=== PATIENT | male | born 1980 ===

== ENCOUNTER 2020-03-23 11:44 | Emergency (ER) | payer BC | END 2020-03-23 12:09 | disposition left against medical advice (07) | LOC: ERS 11:44 | DX: Z53.21 Procedure and treatment not carried out due to patient leaving prior to being seen by health care provider (principal) ==

== ENCOUNTER 2020-03-25 11:26 | Inpatient (IN) | payer BC, OTHER ==
[2020-03-25 12:43] LABS: #Basophils 0.1 thou/uL (0.0-0.2); #Lymphocytes 1.3 thou/uL (1.20-3.40); #Monocytes 0.3 thou/uL (0.11-0.59); #Neutrophils 2.9 thou/uL (1.40-6.50); %Basophils 1.8 % (0.0-1.0); %Eosinophils 0.9 % (0.0-10.0); %Lymphocytes 27.3 % (21.0-51.0); %Monocytes 6.1 % (0.0-10.0); %Neutrophils 63.8 % (42.0-75.0); Hemoglobin 7.8 g/dL (14.0-18.0); Mean Corpuscular HGB CONC 35.3 g/dL (32.0-36.0); Mean Corpuscular Hemoglobin 28.8 pg (27.0-31.0); Mean Corpuscular Volume 81.6 fL (78.0-98.0); Mean Platelet Volume 8.2 fL (7.4-10.4); Platelet Count 187 thou/uL (130-400); RBC Distribution Width 10.8 % (11.5-14.5); Red Blood Cell (RBC) Count 2.72 mill/uL (4.70-6.10); White Blood Cell (WBC) Count 4.6 thou/uL (4.8-10.8)
[2020-03-25 13:01] LABS: ALT (SGPT) 7 U/L (8-55); AST (SGOT) 7 U/L (5-34); Albumin 3.8 g/dL (3.5-5.0); Alkaline Phosphatase 53 U/L (40-110); Anion Gap 14 mmol/L (10-20); BUN (Urea Nitrogen) 64 mg/dL (8.9-20.6); Bilirubin, Total 0.5 mg/dL (0.2-1.2); Calc. Creatinine Clearance 0 mL/min (70-130); Calcium 8.4 mg/dL (7.8-10.44); Carbon Dioxide 17 mmol/L (22-29); Chloride 105 mmol/L (98-107); Estimated GFR-MDRD 6; Globulin 2.3 g/dL (2.4-3.5); Glucose 93 mg/dL (70-105); Potassium 4.4 mmol/L (3.5-5.1); Protein, Total 6.1 g/dL (6.0-8.3); Sodium 132 mmol/L (136-145)
[2020-03-25] MEDS ORDERED: CEFAZOLIN 2 GM in Premix Bag 1 BAG IVPB SCH (13:45)
[2020-03-25] MEDS ORDERED: Tuberculin PPD 0.1 ML VIAL I-DERMAL SCH ×2 (15:45→16:00)
[2020-03-25] MEDS ORDERED: Epoetin (ESRD) 20,000 UNITS/ML SC SCH (16:15)
--- NOTE | 2020-03-25 16:35 | ULT ---
ULTRASOUND VENOUS MAPPING UPPER EXTREMITIES BILATERAL: DATE: 03/25/2020 HISTORY: 40-year-old male with End-stage renal disease. Surgical planning study for creation of arteriovenous fistula for hemodialysis. FINDINGS: RIGHT: Brachial artery:3.5 mm Radial artery:2 mm Ulnar artery:1.5 mm Cephalic vein: Proximal arm: 1.5 mm Mid arm: 1 mm Distal arm: 1.5 mm Antecubital: 1.5 mm Proximal forearm: 0.5 mm Mid forearm: 0.5 mm Distal forearm: 0.5 mm Basilic vein: Proximal arm: 1.5 mm Mid arm: 2 mm Distal arm: 2 mm Antecubital: 2 mm Proximal forearm: 1 mm Mid forearm: 0.5 mm Distal forearm: 0.5 mm LEFT: Brachial artery:4 mm Radial artery:2.5 mm Ulnar artery:1.5 mm Cephalic vein: Proximal arm: 0.5 mm Mid arm: 1 mm Distal arm: 1.5 mm Antecubital: 3 mm Proximal forearm: 1 mm Mid forearm: 0.5 mm Distal forearm: 0.5 mm Basilic vein: Proximal arm: 4 mm Mid arm: 4 mm Distal arm: 3.5 mm Antecubital: 2 mm Proximal forearm: 0.5 mm Mid forearm: 0.5 mm Distal forearm: 0.5 mm IMPRESSION: The basilic vein of the left arm is consistently 3 mm or larger in caliber.
--- NOTE | 2020-03-25 16:49 | PDOC.HHP ---
Hospitalist HPI - History of Present Illness Sent from senior qa analyst office for dialysis History of Present Illness: Mr. Mohamud is a 40M with a PMHx of GERD, HTN, and FSGS diagnosed 10 years ago in [place] who was sent in by his senior qa analyst, Dr. Romero for initiation of dialysis. Patient reports that for the past 10 years he has been on cellcept and briefly prednisone for his FSGS. Dr. Romero reportedly stopped cellcept last week. Initially his kidney problems were identified with protein in his urine. He is unsure what caused the FSGS. He reports mild morning nausea, but denies any other symptoms. Reports that he would like to proceed with peritoneal dialysis so that he may still work. 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 He states it is important to him to start peritoneal dialysis so that he may continue to work normal hours. In the ED initial labs show BUN/Cr of 64/9.16. K of 4.4. H/H 7.8/22.2. Hospitalist ROS - Review of Systems Constitutional: reports: malaise. denies: fever, chills, sweats, weakness, other Eyes: denies: pain, vision change, conjunctivae inflammation, eyelid inflammation, redness, other ENT: denies: ear pain, ear discharge, nose pain, nose discharge, nose congestion , mouth pain, mouth swelling, throat pain, throat swelling, other Respiratory: denies: cough, dry, shortness of breath, hemoptysis, SOB with excertion, pleuritic pain, sputum, wheezing, other Cardiovascular: denies: chest pain, palpitations, orthopnea, paroxysmal noc. dyspnea, edema, light headedness, other Gastrointestinal: reports: nausea. denies: vomiting, abdominal pain, diarrhea, constipation, melena, hematochezia, other Genitourinary: denies: dysuria, frequency, incontinence, hematuria, retention, other Musculoskeletal: denies: neck pain, shoulder pain, arm pain, back pain, hand pain, leg pain, foot pain, other Skin: denies: rash, lesions, farhad, bruising, other Neurological: denies: weakness, numbness, incoordination, change in speech, confusion, seizures, other Hospitalist History - Past Medical History Cardiac: reports: HTN Pulmonary: reports: no pertinent history [employer]: reports: no pertinent history Gastrointestinal: reports: GERD Heme/Onc: reports: Anemia NOS Hepatobiliary: reports: no pertinent history Psych: reports: no pertinent history Musculoskeletal: reports: no pertinent history Rheumatologic: reports: no pertinent history Infectious Disease: reports: no pertinent history ENT: reports: no pertinent history Renal/: reports: Acute renal failure, Chronic renal failure Endocrine: reports: no pertinent history Dermatology: reports: no pertinent history - Past Surgical History Past Surgical History: reports: no pertinent history - Family History Family History: reports: no pertinent history - Social History Smoking Status: Never smoker Alcohol: reports: None Drugs: reports: none Living Situation: With Family Occupation: Gaming Dealer Activity level: independent ambulation - Exam General Appearance: NAD, awake alert General - other findings: No asterxis Eye: PERRL, anicteric sclera ENT: normocephalic atraumatic, no oropharyngeal lesions, moist mucosa Neck: supple, symmetric, no JVD, no thyromegaly, no lymphadenopathy, no carotid bruit Heart: RRR, no murmur, no gallops, no rubs, normal peripheral pulses Respiratory: CTAB, no wheezes, no rales, no ronchi, normal chest expansion, no tachypnea, normal percussion Gastrointestinal: soft, non-tender, non-distended, normal bowel sounds, no palpable masses, no hepatomegaly, no splenomegaly, no bruit Extremities: no cyanosis, no clubbing, no edema Skin: normal turgor, no lesions, no rashes Neurological: cranial nerve grossly intact, normal sensation to touch, no weakness, no focal deficits, no new deficit Musculoskeletal: normal tone, normal strength, no muscle wasting Psychiatric: normal affect, normal behavior, A&O x 3 Hospitalist Results - Labs Result Diagrams: 03/25/20 12:18 03/25/20 12:18 Lab results: WBC 4.6 thou/uL (4.8-10.8) L 03/25/20 12:18 Hgb 7.8 g/dL (14.0-18.0) L 03/25/20 12:18 Hct 22.2 % (42.0-52.0) L 03/25/20 12:18 MCV 81.6 fL (78.0-98.0) 03/25/20 12:18 Plt Count 187 thou/uL (130-400) 03/25/20 12:18 Neutrophils % 63.8 % (42.0-75.0) 03/25/20 12:18 Sodium 132 mmol/L (136-145) L 03/25/20 12:18 Potassium 4.4 mmol/L (3.5-5.1) 03/25/20 12:18 Chloride 105 mmol/L (98-107) 03/25/20 12:18 Carbon Dioxide 17 mmol/L (22-29) L 03/25/20 12:18 BUN 64 mg/dL (8.9-20.6) H 03/25/20 12:18 Creatinine 9.16 mg/dL (0.7-1.3) H 03/25/20 12:18 Glucose 93 mg/dL (70-105) 03/25/20 12:18 Calcium 8.4 mg/dL (7.8-10.44) 03/25/20 12:18 Total Bilirubin 0.5 mg/dL (0.2-1.2) 03/25/20 12:18 AST 7 U/L (5-34) 03/25/20 12:18 ALT 7 U/L (8-55) L 03/25/20 12:18 Alkaline Phosphatase 53 U/L (40-110) 03/25/20 12:18 Serum Total Protein 6.1 g/dL (6.0-8.3) 03/25/20 12:18 Albumin 3.8 g/dL (3.5-5.0) 03/25/20 12:18 Hospitalist H&P A/P - Problem (1) Acute on chronic renal failure Code(s): N17.9 - ACUTE KIDNEY FAILURE, UNSPECIFIED; N18.9 - CHRONIC KIDNEY DISEASE, UNSPECIFIED Status: Acute (2) Anemia in chronic kidney disease Code(s): N18.9 - CHRONIC KIDNEY DISEASE, UNSPECIFIED; D63.1 - ANEMIA IN CHRONIC KIDNEY DISEASE Status: Acute (3) Hypertension Code(s): I10 - ESSENTIAL (PRIMARY) HYPERTENSION Status: Acute (4) GERD (gastroesophageal reflux disease) Code(s): K21.9 - GASTRO-ESOPHAGEAL REFLUX DISEASE WITHOUT ESOPHAGITIS Status: Acute - Plan Plan: Acute on Chronic Renal Failure: Hx of FSGS followed by Dr. Romero. Pt presented from office for initiation of dialysis. 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 On admission BUN/Cr 64/ 9.16. K 4.4. Dr. Topete of general surgery consulted for PD catheter placement. PLAN: -PD catheter placement -Nephrology following -BNP, Mg, Ca, PO4 Anemia of Chronic Disease: Anemia of chronic disease 2/2 CKD. H/H on presentation 7.8/22.2. Nephrology has imitated EPO. PLAN: -EPO per nephrology -Monitor CBC HTN: Hx of HTN. Continue home metoprolol and nifedipine. GERD: Continue home omeprazole. Zofran prn nausea. DVT prophylaxis: SC heparin FULL CODE Case discussed with attending physician, Dr. Araiza. Addendum - Physician - Physician Attestation Date/Time: 03/25/20 1833 Patient was seen and evaluated. I have verified all PA documentation or findings , including history, physical exam and/or medical decision making. 40-year-old male with FSGS followed by Dr. Romero presents with worsening Acute kidney injury on CKD stage V. Plan is for peritoneal dialysis catheter along with AV fistula. Vital signs stable. Procardia XL resumed. Monitor renal function closely. Recheck labs in a.m. All questions were answered. Patient understands the above plan of care.
[2020-03-25 16:56] LABS: Calcium 8.4 mg/dL (7.8-10.44); Magnesium 1.5 mg/dL (1.6-2.6); Phosphorus 3.8 mg/dL (2.3-4.7)
[2020-03-25 17:18] LABS: HBSAg Index 0.34 S/CO (0-0.99); Hep B Core Total Ab Non-Reactive (NonReactive); Hep B Core Total Index 0.04 S/CO (0-0.79); Hep B Surf Ag Non-Reactive S/CO (NonReactive); Hep C IgG Ab Non-Reactive (NonReactive)
[2020-03-25 17:19] LABS: HBSAB Concentration 585.84 mIU/mL; Hep B Surf AB Reactive (NonReactive)
[2020-03-25 17:36] VITALS: BMI 16.0
--- NOTE | 2020-03-25 19:24 | CON ---
DATE OF CONSULTATION: HISTORY OF PRESENT ILLNESS: Mr. Oneida Andino is a 40-year-old Greek male who has been having progressive azotemia. His creatinine was noted about 9 mg percent at the clinic 2 days ago. He has underlying biopsy-proven FSGS. REVIEW OF SYSTEMS: Positive for nausea. Positive for decreased energy level. Decreased appetite. No chest pain or shortness of breath. No leg edema. No abdominal pain. No syncopal episode. No sore throat. No productive cough. No fever or chills. No abdominal pain. No diarrhea. No dysuria. No urinary frequency. No hematochezia. No melena. No joint pains. HOME MEDICATIONS: Includes 1. Nifedipine 30 mg XL tablet once a day. 2. Calcitriol 0.25 mcg tablet daily. 3. Coenzyme Q once a day. 4. Vitamin D3 2000 international unit once a day. 5. Zinc 1 mg tablet once a day. 6. B12 1000 mcg tablet daily. PAST MEDICAL HISTORY: 1. Chronic renal failure. 2. Chronic renal failure from presumed FSGS/nephrotic syndrome. PAST SURGICAL HISTORY: Status post renal biopsy. SOCIAL HISTORY: The patient is . No children. Currently a student at [employer]. He is originally from [place]. No smoking. No IV drug abuse. No alcohol intake. No blood transfusion. Active lifestyle. ALLERGIES: NONE. TRAUMA: None. IMMUNIZATIONS: Up to date. HOSPITALIZATIONS: Please see past medical history. FAMILY HISTORY: No family history of ESRD. PHYSICAL EXAMINATION: VITAL SIGNS: Blood pressure is 146/96, heart rate 56, respiratory rate 16, O2 saturation 100% on room air. GENERAL: The patient is awake, alert, comfortable, not in distress. SKIN: Adequate turgor. HEENT: He has pinkish conjunctivae, anicteric sclerae. NECK: No neck mass. No carotid bruits. No JVD. CHEST: No deformities. LUNGS: Clear breath sounds. HEART: Normal sinus rhythm. No murmurs, gallops, or rubs. ABDOMEN: Globular, soft, nontender. No masses. EXTREMITIES: No edema, no deformities. NEUROLOGIC: Patient is awake, oriented to 3 spheres. Moving all extremities. No tremors. No asterixis. No ataxia. LABORATORY DATA: March 25, 2020, white count 4.6, hemoglobin 7.8. Sodium 132, potassium 4.4, chloride 105, carbon dioxide 17, BUN 64, creatinine 9.16, GFR 16 mL/minute, calcium 8.4. AST 7, ALT 7. Albumin 3.8. ASSESSMENT AND PLAN: 1. Chronic renal failure secondary to biopsy-proven FSGS progressive azotemia. Renal function has worsened since he was first seen in the Renal clinic back on September 30, 2018. He is aware about the need for dialytic intervention. Initially, he thought of going back to [place] to get the renal transplant. The plan is to initiate dialysis with him. He is requesting to undergo peritoneal dialysis. He will have a PD catheter placed by Dr. Topete. He may eventually need also an AV fistula for backup. I did tell him he could have both. Dr. Topete has been consulted. Once we have the PD catheter placed, we will initiate an acute peritoneal dialysis using low volume initially, so he will tolerate the said procedure. We will continue this consecutively every day and subsequently transfer him to the outpatient dialysis clinic. 2. Anemia. We will initiate Epogen with this patient, 7500 units subcu q.week. At the same time, we will start ferrous sulfate. Job ID: [id number]
[2020-03-25] MEDS: Metoprolol Tartrate 25 MG TAB PO SCH (20:42)
--- NOTE | 2020-03-26 00:20 | CON ---
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 The patient is from [place]. He is . His lives here in town with him. The patient is schedule to finish his PhD in this semester. He has job opportunities in [place], [place] to [place]. He has been followed in both [place] and here during his education by different smog technician. Dr. Romero has been following him and admitted him to initiate dialysis. He hopes to do peritoneal dialysis to enable him to continue his work and studies. He is right-handed. He did have ultrasound vein mapping today demonstrating cephalic veins both arms to be of poor quality. He is not interested in hemodialysis at this time and wants hemodialysis access at this time and we are planning laparoscopic peritoneal dialysis catheter placement tomorrow. He understands risks and benefits, consents. ALLERGIES: NONE. SOCIAL HISTORY: Tobacco, none. Alcohol, none. MEDICATIONS: 1. Procardia XL 30 mg a day. 2. daily. PAST SURGICAL HISTORY: Kidney biopsy. PAST MEDICAL HISTORY: Focal glomerulosclerosis followed by Dr. Romero and other smog technician over the past years. REVIEW OF SYSTEMS: Ten-point noncontributory. PHYSICAL EXAMINATION: VITAL SIGNS: 6 feet 2 inches, 124 pounds, and 16 BMI. 97.6, 66, and 142/96. Bandage in left antecubital area IV, right distal forearm. HEAD, EARS, EYES, NOSE, AND THROAT: Unremarkable. LUNGS: Clear to auscultation. CARDIAC: Regular rate and rhythm without murmur or gallop. ABDOMEN: Soft and nontender. No hernia is evident. EXTREMITIES: Unremarkable. ASSESSMENT AND PLAN: Progressive chronic kidney disease in need to initiate dialysis. We will plan placement laparoscopic peritoneal dialysis catheter tomorrow. He understands risks and benefits, consents. He has poor veins for hemodialysis access and is not interested in having at this time and we will not perform this at this time. Job ID: [id number]
[2020-03-26 06:22] LABS: #Basophils 0.1 thou/uL (0.0-0.2); #Eosinphils 0.1 thou/uL (0.0-0.7); #Lymphocytes 1.7 thou/uL (1.20-3.40); #Monocytes 0.4 thou/uL (0.11-0.59); %Basophils 1.6 % (0.0-1.0); %Eosinophils 3.2 % (0.0-10.0); %Lymphocytes 39.2 % (21.0-51.0); %Monocytes 8.1 % (0.0-10.0); %Neutrophils 47.8 % (42.0-75.0); Hemoglobin 6.5 g/dL (14.0-18.0); Mean Corpuscular HGB CONC 35.4 g/dL (32.0-36.0); Mean Corpuscular Hemoglobin 28.8 pg (27.0-31.0); Mean Corpuscular Volume 81.3 fL (78.0-98.0); Mean Platelet Volume 8.2 fL (7.4-10.4); Platelet Count 152 thou/uL (130-400); RBC Distribution Width 10.9 % (11.5-14.5); Red Blood Cell (RBC) Count 2.24 mill/uL (4.70-6.10); White Blood Cell (WBC) Count 4.3 thou/uL (4.8-10.8)
[2020-03-26 06:40] LABS: Anion Gap 11 mmol/L (10-20); BUN (Urea Nitrogen) 67 mg/dL (8.9-20.6); Calc. Creatinine Clearance 9 mL/min (70-130); Calcium 7.7 mg/dL (7.8-10.44); Carbon Dioxide 19 mmol/L (22-29); Chloride 103 mmol/L (98-107); Estimated GFR-MDRD 7; Glucose 93 mg/dL (70-105); Potassium 4.4 mmol/L (3.5-5.1); Sodium 129 mmol/L (136-145)
[2020-03-26 08:14] LABS: SARS-CoV-2 NAA Rapid Test Not Detected (NotDetected)
[2020-03-26] MEDS ORDERED: hydrALAZINE 20 MG/ML VIAL SLOW IVP PRN (08:14)
[2020-03-26] MEDS: NIFEdipine XL 30 MG TAB PO SCH (08:49)
[2020-03-26] MEDS: Metoprolol Tartrate 25 MG TAB PO SCH ×2 (08:49→20:42)
[2020-03-26] MEDS: Calcitriol 0.25 MCG CAP PO SCH (08:50)
[2020-03-26] MEDS ORDERED: EPOETIN ALFA-EPBX (ESRD) 4,000 UNIT/ML VIAL SC SCH (09:00)
[2020-03-26] MEDS ORDERED: Ondansetron PF 4 MG/2 ML Vial ONE (09:02)
[2020-03-26] MEDS ORDERED: Lidocaine 1% PF 5 ML VIAL ONE (09:02)
[2020-03-26] MEDS ORDERED: Rocuronium Bromide 10 MG/ML (10ML VIAL) ONE (09:02)
[2020-03-26] MEDS ORDERED: PROPOFOL 200 MG/20 ML VIAL ONE (09:02)
--- NOTE | 2020-03-26 09:26 | PRG ---
DATE OF SERVICE: 03/26/2020 SUBJECTIVE: Mr. Oneida Andino is a 40-year-old Martiniquais male, admitted for initiation of dialysis. He had a biopsy-proven FSGS. He is complaining of some nausea today, but no chest pain or shortness of breath. OBJECTIVE: VITAL SIGNS: Blood pressure 146/82, heart rate 68, respiratory rate 18, temperature 98.1, O2 saturation 100%. GENERAL: Awake, alert, comfortable, not in distress. SKIN: Adequate turgor. HEENT: Pale conjunctivae. Anicteric sclerae. NECK: No neck mass. No carotid bruits. No JVD. CHEST: No deformities. LUNGS: Clear breath sounds. HEART: Normal sinus rhythm. No murmur. No gallops. No rubs. ABDOMEN: Globular, soft, nontender. No masses. EXTREMITIES: No edema. No deformities. MEDICATIONS: On March 26, 2020, were reviewed. LABORATORY DATA: On March 26, 2020; white count 4.3, hemoglobin 6.5. Sodium 129, potassium 4.4, chloride 103, carbon dioxide 19, BUN 67, creatinine 8.59, calcium 7.7. Phosphorus 2.8. ASSESSMENT AND PLAN: 1. Chronic renal failure secondary to biopsy-proven focal segmental glomerulosclerosis, progressive azotemia. The patient for peritoneal dialysis catheter placement and will initiate peritoneal dialysis acutely. 2. Anemia. Currently, on Epogen regimen. Hemoglobin noted at 6.5. He will need p.r.n. blood transfusion. 3. Hypertension, stable. Continue current blood pressure medications. 4. Surgery to place a peritoneal dialysis catheter today. Job ID: [id number]
[2020-03-26] MEDS ORDERED: Bupivacaine PF 0.5% 30 ML VIAL ONE (10:57)
[2020-03-26] MEDS ORDERED: Lidocaine 1% w/Epinephrine 1:100K 20 ML VIAL ONE (10:57)
[2020-03-26] MEDS ORDERED: Heparin 10,000 UNITS/ 10 ML VIAL ONE (10:57)
[2020-03-26] MEDS ORDERED: Acetaminophen 500 MG TAB PO PRN (11:00)
[2020-03-26] MEDS ORDERED: Fentanyl 100 MCG/2 ML VIAL ONE ×3 (11:07→12:29)
[2020-03-26] MEDS ORDERED: SUGAMMADEX SODIUM 200 MG/2 ML VIAL ONE (11:07)
[2020-03-26] MEDS ORDERED: Ondansetron HCl/PF 4 MG/2 ML Vial IVP PRN (12:53)
[2020-03-26] MEDS ORDERED: Promethazine HCl 25 MG/ML VIAL IM/IV PRN (12:53)
[2020-03-26] MEDS ORDERED: Non-Formulary Medication 1 EACH PO PRN (12:53)
[2020-03-26] MEDS ORDERED: Promethazine HCl 25 MG/ML VIAL ONE (12:56)
[2020-03-26] MEDS: Tuberculin PPD 0.1 ML VIAL I-DERMAL SCH ×4 (13:15→13:23)
[2020-03-26] MEDS: traMADol HCl 50 MG TAB PO PRN (15:13)
--- NOTE | 2020-03-26 16:29 | OP ---
DATE OF PROCEDURE: 03/26/2020 PREOPERATIVE DIAGNOSES: End-stage renal disease, desires peritoneal dialysis, poor veins by ultrasound vein mapping for fistula, and the patient does not want that at this time. PROCEDURE PERFORMED: Laparoscopic peritoneal dialysis catheter, double-cuffed pigtail. ANESTHESIA: General, local 0.5% Marcaine 30 mL mixed with 1% Xylocaine with epinephrine 20 mL. DESCRIPTION OF PROCEDURE: The patient was taken to the operating room, where in supine position, abdomen was prepared with ChloraPrep and draped in routine fashion under general anesthesia. Local anesthetic mixture was infiltrated into the skin and subcutaneous tissue about the operative sites. Bilateral far lateral incision was made. Pneumoperitoneum to 15 mmHg was obtained with a Veress needle, replaced with a 5 port, and video laparoscope inserted. Contralateral 5 port was placed. Stab incision made in the left lower quadrant planned exit site of the double cuffed pigtail peritoneal dialysis catheter and a counter incision made left paraumbilical and carried down through skin and subcutaneous tissue, and subcutaneous tissue was dissected free. An 8-mm port placed through this counter incision, directed caudally toward the pelvis to the subcutaneous tissue into the rectus sheath, visualized laparoscopically, penetrating the abdominal wall dependently. Catheter, double cuffed pigtail placed through this port with the internal cuff in the rectus sheath and port removed. A [place] dissector placed through the planned exit site into the counter incision, grasping the catheter and pulling out at the planned exit site, placing the external cuff beneath the skin exit site. Subcutaneous tissue was approximated with 3-0 Monocryl, skin with subdermal 4-0 Monocryl, and [place] glue applied. The catheter flushed with heparinized saline solution, 1000 units of heparin per mL, 10 mL, and cap placed, and sterile dressings applied. Pneumoperitoneum reduced after appreciating the omentum would not reach into the pelvis and omentopexy was not necessary. Remainder of abdominal cavity was unremarkable grossly. Pneumoperitoneum evacuated. All skin incisions approximated with interrupted subdermal 4-0 Monocryl and [place] glue applied. Job ID: [id number]
--- NOTE | 2020-03-26 18:55 | PDOC.HOSPP ---
- Subjective Encounter Date: 03/26/20 Encounter Time: 12:00 Subjective: Patient seen and examined in PACU for worsening CKD. Underwent peritoneal dialysis catheter placement. - Objective Vital Signs & Weight: Vital Signs (12 hours) Temp Pulse Resp BP Pulse Ox 03/26/20 16:33 98.4 F 65 18 141/76 H 99 03/26/20 14:45 69 152/91 H 03/26/20 14:15 64 147/77 H 03/26/20 13:45 61 135/71 03/26/20 13:15 97.5 F L 74 18 157/79 H 100 03/26/20 08:49 68 03/26/20 07:00 98.1 F 68 18 146/82 H 100 Weight Admit Weight 124 lb 9.6 oz Weight 124 lb 9.6 oz I&O: 03/25/20 03/26/20 03/27/20 06:59 06:59 06:59 Intake Total 240 800 Output Total 1100 Balance -860 800 Result Diagrams: 03/26/20 05:57 03/26/20 05:57 Hospitalist ROS - Review of Systems Respiratory: denies: cough, dry, shortness of breath, hemoptysis, SOB with excertion, pleuritic pain, sputum, wheezing, other Cardiovascular: denies: chest pain, palpitations, orthopnea, paroxysmal noc. dyspnea, edema, light headedness, other - Medication Medications: Active Medications Generic Name Dose Route Start Last Admin Trade Name Freq PRN Reason Stop Dose Admin Calcitriol 0.25 mcg 03/26/20 09:00 03/26/20 08:50 Rocaltrol PO 0.25 mcg DAILY YARI Administration Epoetin Robert-epbx 7,500 unit 03/26/20 09:00 03/26/20 08:50 Retacrit SC 7,500 unit [id number] YARI Administration Metoprolol Tartrate 25 mg 03/25/20 21:00 03/26/20 08:49 Lopressor PO 25 mg BID YARI Administration Nifedipine 30 mg 03/26/20 09:00 03/26/20 08:49 Procardia Xl PO 30 mg DAILY YARI Administration Tramadol HCl 50 mg 03/26/20 11:00 03/26/20 15:13 Ultram PO 50 mg Q4H PRN Administration Mild-Moderate Pain (1-5) Tuberculin PPD 0.1 ml 03/26/20 13:30 03/26/20 13:23 Tuberculin Ppd I-DERMAL 03/29/20 13:31 0.1 ml 1330 YARI Administration - Exam General Appearance: NAD Neck: supple, no JVD Heart: RRR, no gallops Respiratory: no wheezes, no ronchi Gastrointestinal: soft, non-distended Extremities: no cyanosis Hosp A/P (1) Acute on chronic renal failure Code(s): N17.9 - ACUTE KIDNEY FAILURE, UNSPECIFIED; N18.9 - CHRONIC KIDNEY DISEASE, UNSPECIFIED Status: Acute Qualifiers: Chronic kidney disease stage: stage 5, not on chronic dialysis (2) Anemia in chronic kidney disease Code(s): N18.9 - CHRONIC KIDNEY DISEASE, UNSPECIFIED; D63.1 - ANEMIA IN CHRONIC KIDNEY DISEASE Status: Acute (3) Hypertension Code(s): I10 - ESSENTIAL (PRIMARY) HYPERTENSION Status: Chronic (4) GERD (gastroesophageal reflux disease) Code(s): K21.9 - GASTRO-ESOPHAGEAL REFLUX DISEASE WITHOUT ESOPHAGITIS Status: Chronic (5) FSGS (focal segmental glomerulosclerosis) Code(s): N05.1 - UNSP NEPH SYNDROME W FOCAL AND SEGMENTAL GLOMERULAR LESIONS Status: Chronic - Plan 03/26 Patient underwent peritoneal dialysis catheter placement. Dialysis will be initiated. He declined AV fistula at this time. Continue Procardia XL with metoprolol. Outpatient dialysis set up. Continue renal diet. Ambulate. DVT prophylaxis with heparin.
[2020-03-26] MEDS: Heparin 5,000 UNITS/ML VIAL SC SCH (20:42)
[2020-03-27] MEDS: Heparin 5,000 UNITS/ML VIAL SC SCH ×2 (08:05→20:10)
[2020-03-27] MEDS: NIFEdipine XL 30 MG TAB PO SCH (08:06)
[2020-03-27] MEDS: Calcitriol 0.25 MCG CAP PO SCH (08:06)
[2020-03-27] MEDS: Metoprolol Tartrate 25 MG TAB PO SCH ×2 (08:06→20:12)
[2020-03-27] MEDS: Tuberculin PPD 0.1 ML VIAL I-DERMAL SCH (08:12)
--- NOTE | 2020-03-27 10:58 | PRG ---
DATE OF SERVICE: 03/27/2020 SUBJECTIVE: Mr. Oneida Andino is a 40-year-old Panamanian male, who was admitted for initiation of dialysis. A peritoneal dialysis catheter was placed yesterday. He is undergoing CAPD at the present time. We are doing an acute peritoneal dialysis. He seems to be tolerating the said treatment. We initiated only a 500 mL exchange for the patient. Some bloody effluent was noted, which is a reflection of the recent surgery. No complaints of chest pain or shortness of breath. OBJECTIVE: VITAL SIGNS: Blood pressure 150/78, heart rate 69, respiratory rate 16, temperature 97.2, O2 saturation 99%. GENERAL: The patient is awake, alert, comfortable, supine, not in distress. SKIN: Adequate turgor. HEENT: Pale conjunctivae. Anicteric sclerae. NECK: No neck mass. No carotid bruits. No JVD. CHEST: No deformities. LUNGS: Clear breath sounds. HEART: Normal sinus rhythm. No murmur. No gallops. No rubs. ABDOMEN: Globular, soft, nontender. No masses. EXTREMITIES: No edema. No deformities. PD catheter noted. MEDICATIONS: Medications of March 27, 2020, reviewed. LABORATORY DATA: Laboratories of March 26, 2020; white count 4.2, hemoglobin 6.5. Sodium 129, potassium 4.4, chloride 103, carbon dioxide 19, BUN 67, creatinine 8.59, calcium 7.7. ASSESSMENT AND PLAN: 1. End-stage renal disease/chronic renal failure. Initiated CCPD. Currently, undergoing a 6-hour treatment using 500 mL of PD fluid. He is tolerating the current acute peritoneal dialysis. 2. Anemia. The patient is currently on Epogen. We will give 1 unit of packed RBC today. Recheck CBC in a.m. 3. Hypertension, stable. Continue current BP medications. 4. Recheck CBC, basic metabolic profile. Job ID: [id number]
[2020-03-27 11:12] LABS: #Basophils 0.1 thou/uL (0.0-0.2); #Lymphocytes 0.7 thou/uL (1.20-3.40); #Monocytes 0.2 thou/uL (0.11-0.59); #Neutrophils 3.5 thou/uL (1.40-6.50); %Basophils 1.5 % (0.0-1.0); %Eosinophils 0.7 % (0.0-10.0); %Lymphocytes 15.6 % (21.0-51.0); %Monocytes 5.4 % (0.0-10.0); %Neutrophils 76.8 % (42.0-75.0); Hemoglobin 7.3 g/dL (14.0-18.0); Mean Corpuscular HGB CONC 35.5 g/dL (32.0-36.0); Mean Corpuscular Hemoglobin 29.1 pg (27.0-31.0); Mean Corpuscular Volume 81.9 fL (78.0-98.0); Mean Platelet Volume 8.5 fL (7.4-10.4); Platelet Count 168 thou/uL (130-400); RBC Distribution Width 11.1 % (11.5-14.5); Red Blood Cell (RBC) Count 2.52 mill/uL (4.70-6.10); White Blood Cell (WBC) Count 4.5 thou/uL (4.8-10.8)
[2020-03-27 11:29] LABS: Anion Gap 12 mmol/L (10-20); BUN (Urea Nitrogen) 64 mg/dL (8.9-20.6); Calc. Creatinine Clearance 9 mL/min (70-130); Calcium 7.9 mg/dL (7.8-10.44); Carbon Dioxide 20 mmol/L (22-29); Chloride 102 mmol/L (98-107); Estimated GFR-MDRD 7; Glucose 112 mg/dL (70-105); Potassium 4.3 mmol/L (3.5-5.1); Sodium 130 mmol/L (136-145)
--- NOTE | 2020-03-27 16:34 | PDOC.HOSPP ---
- Subjective Encounter Date: 03/27/20 Encounter Time: 10:30 Subjective: Patient seen and examined for acute kidney injury. Undergoing peritoneal dialysis. Some nausea earlier. Denies any fever, chills or abdominal pain. Dialysis nurse at the bedside educating him on peritoneal dialysis. - Objective Vital Signs & Weight: Vital Signs (12 hours) Temp Pulse Pulse Resp BP BP BP 03/27/20 15:11 98.2 F 62 18 153/84 H 03/27/20 08:06 69 150/78 H 03/27/20 08:03 97.2 F L 69 16 150/78 H Pulse Ox 03/27/20 15:11 100 03/27/20 08:06 03/27/20 08:03 99 Weight Admit Weight 124 lb 9.6 oz Weight 125 lb I&O: 03/26/20 03/27/20 03/28/20 06:59 06:59 06:59 Intake Total 240 800 360 Output Total 1100 1200 Balance -860 800 -840 Result Diagrams: 03/27/20 10:33 03/27/20 10:33 Hospitalist ROS - Review of Systems Respiratory: denies: cough, dry, shortness of breath, hemoptysis, SOB with excertion, pleuritic pain, sputum, wheezing, other Cardiovascular: denies: chest pain, palpitations, orthopnea, paroxysmal noc. dyspnea, edema, light headedness, other - Medication Medications: Active Medications Generic Name Dose Route Start Last Admin Trade Name Freq PRN Reason Stop Dose Admin Calcitriol 0.25 mcg 03/26/20 09:00 03/27/20 08:06 Rocaltrol PO 0.25 mcg DAILY YARI Administration Epoetin Robert-epbx 7,500 unit 03/26/20 09:00 03/26/20 08:50 Retacrit SC 7,500 unit [id number] YARI Administration Heparin Sodium (Porcine) 5,000 units 03/26/20 21:00 03/27/20 08:05 Heparin SC 5,000 units BID YARI Administration Metoprolol Tartrate 25 mg 03/25/20 21:00 03/27/20 08:06 Lopressor PO 25 mg BID YARI Administration Nifedipine 30 mg 03/26/20 09:00 03/27/20 08:06 Procardia Xl PO 30 mg DAILY YARI Administration Tramadol HCl 50 mg 03/26/20 11:00 03/26/20 15:13 Ultram PO 50 mg Q4H PRN Administration Mild-Moderate Pain (1-5) Tuberculin PPD 0.1 ml 03/26/20 13:30 03/27/20 08:12 Tuberculin Ppd I-DERMAL 03/29/20 13:31 Not Given 1330 YARI - Exam General Appearance: NAD Neck: supple, no JVD Respiratory: normal chest expansion Extremities: no cyanosis, no clubbing Neurological: no new deficit Psychiatric: normal affect, A&O x 3 Hosp A/P (1) Acute on chronic renal failure Code(s): N17.9 - ACUTE KIDNEY FAILURE, UNSPECIFIED; N18.9 - CHRONIC KIDNEY DISEASE, UNSPECIFIED Status: Acute Qualifiers: Chronic kidney disease stage: stage 5, not on chronic dialysis (2) Anemia in chronic kidney disease Code(s): N18.9 - CHRONIC KIDNEY DISEASE, UNSPECIFIED; D63.1 - ANEMIA IN CHRONIC KIDNEY DISEASE Status: Chronic Qualifiers: Chronic kidney disease stage: stage 5, not on chronic dialysis Qualified Code(s): N18.5 - Chronic kidney disease, stage 5; D63.1 - Anemia in chronic kidney disease (3) Hypertension Code(s): I10 - ESSENTIAL (PRIMARY) HYPERTENSION Status: Chronic (4) GERD (gastroesophageal reflux disease) Code(s): K21.9 - GASTRO-ESOPHAGEAL REFLUX DISEASE WITHOUT ESOPHAGITIS Status: Chronic (5) FSGS (focal segmental glomerulosclerosis) Code(s): N05.1 - UNSP NEPH SYNDROME W FOCAL AND SEGMENTAL GLOMERULAR LESIONS Status: Chronic - Plan DVT proph w/SCDs 03/27 Continue peritoneal dialysis. Receiving 1 unit of PRBC. Continue metoprolol with Procardia XL. Await outpatient dialysis set up. DVT prophylaxis. Continue other medications as above. 03/26 Patient underwent peritoneal dialysis catheter placement. Dialysis will be initiated. He declined AV fistula at this time. Continue Procardia XL with metoprolol. Outpatient dialysis set up. Continue renal diet. Ambulate. DVT prophylaxis with heparin.
[2020-03-27] MEDS ORDERED: Labetalol HCl 100 MG/20 ML VIAL SLOW IVP PRN (16:38)
[2020-03-27] MEDS: traMADol HCl 50 MG TAB PO PRN (22:05)
[2020-03-28 05:41] LABS: #Basophils 0.1 thou/uL (0.0-0.2); #Eosinphils 0.1 thou/uL (0.0-0.7); #Lymphocytes 1.8 thou/uL (1.20-3.40); #Monocytes 0.4 thou/uL (0.11-0.59); #Neutrophils 2.5 thou/uL (1.40-6.50); %Basophils 1.5 % (0.0-1.0); %Eosinophils 2.3 % (0.0-10.0); %Monocytes 8.5 % (0.0-10.0); %Neutrophils 50.7 % (42.0-75.0); Hemoglobin 8.5 g/dL (14.0-18.0); Mean Corpuscular HGB CONC 34.9 g/dL (32.0-36.0); Mean Corpuscular Hemoglobin 29.3 pg (27.0-31.0); Mean Corpuscular Volume 84.1 fL (78.0-98.0); Mean Platelet Volume 8.6 fL (7.4-10.4); Platelet Count 178 thou/uL (130-400); RBC Distribution Width 12.5 % (11.5-14.5); Red Blood Cell (RBC) Count 2.91 mill/uL (4.70-6.10); White Blood Cell (WBC) Count 4.8 thou/uL (4.8-10.8)
[2020-03-28 05:58] LABS: Anion Gap 13 mmol/L (10-20); BUN (Urea Nitrogen) 66 mg/dL (8.9-20.6); Calc. Creatinine Clearance 9 mL/min (70-130); Carbon Dioxide 21 mmol/L (22-29); Chloride 103 mmol/L (98-107); Estimated GFR-MDRD 7; Glucose 88 mg/dL (70-105); Potassium 4.1 mmol/L (3.5-5.1); Sodium 133 mmol/L (136-145)
[2020-03-28] MEDS: Metoprolol Tartrate 25 MG TAB PO SCH ×2 (08:53→20:15)
[2020-03-28] MEDS: NIFEdipine XL 30 MG TAB PO SCH (08:53)
[2020-03-28] MEDS: Heparin 5,000 UNITS/ML VIAL SC SCH ×2 (08:56→20:15)
[2020-03-28] MEDS: Calcitriol 0.25 MCG CAP PO SCH (09:41)
--- NOTE | 2020-03-28 09:59 | PRG ---
DATE OF SERVICE: 03/28/2020 SUBJECTIVE: Mr. Oneida Andino is a 40-year-old [place] male, admitted for initiation of dialysis. He is undergoing peritoneal dialysis at the present time. Yesterday, he underwent a 6-hour peritoneal dialysis using 500 mL fill volume. The plan today is to use a 1 L fill volume for the next 6 hours. We are doing this gently. So far, he is tolerating it. There is no leakage around the PD site. The patient voices no new complaints. OBJECTIVE: VITAL SIGNS: Blood pressure 143/71, heart rate 59, respiratory rate 18, O2 saturations 99%, and temperature 96.7. GENERAL: The patient is awake, alert, comfortable, not in distress. SKIN: Adequate turgor. HEENT: Slightly pale conjunctivae. Anicteric sclerae. No neck mass. No carotid bruits. No JVD. CHEST: No deformities. LUNGS: Clear breath sounds. HEART: Normal sinus rhythm. No murmurs. No gallops. No rubs. ABDOMEN: Globular, soft, nontender. No masses. EXTREMITIES: No edema. No deformities. MEDICATIONS: Medications of March 28, 2020, reviewed. LABORATORY DATA: Laboratories of March 28, 2020: Sodium 133, potassium 4.1, chloride 103, carbon dioxide 21, BUN 66, creatinine 9.06, calcium 8. White count 4.8, hemoglobin 8.5. ASSESSMENT AND PLAN: 1. End-stage renal disease/chronic renal failure, continuing peritoneal dialysis. As previously mentioned, we will do a 6-hour treatment using 1 L fill volume. We are doing this very gently to see if he will tolerate it. So far, he is tolerating it. 2. Hypertension. Continue metoprolol, nifedipine. 3. Anemia, status post blood transfusion. Continue Epogen regimen. Add ferrous sulfate 325 mg p.o. b.i.d. I have referred the patient for PT consult to help ambulate. He tells me he is feeling a little weaker. We will be rechecking phosphorus and PTH in a.m. Job ID: [id number]
--- NOTE | 2020-03-28 13:30 | PDOC.HOSPP ---
- Subjective Encounter Date: 03/28/20 Encounter Time: 10:30 Subjective: Patient seen and examined for acute kidney injury. Undergoing peritoneal dialysis. Had mild nausea earlier. Denies any other complaints. - Objective Vital Signs & Weight: Vital Signs (12 hours) Temp Pulse Resp BP BP Pulse Ox 03/28/20 08:53 68 143/71 H 03/28/20 08:00 97.6 F 68 18 143/71 H 100 Weight Admit Weight 124 lb 9.6 oz Weight 125 lb I&O: 03/27/20 03/28/20 03/29/20 06:59 06:59 06:59 Intake Total 800 1123 Output Total 1600 Balance 800 -477 Result Diagrams: 03/28/20 05:13 03/28/20 05:13 Hospitalist ROS - Review of Systems Respiratory: denies: cough, dry, shortness of breath, hemoptysis, SOB with excertion, pleuritic pain, sputum, wheezing, other Cardiovascular: denies: chest pain, palpitations, orthopnea, paroxysmal noc. dyspnea, edema, light headedness, other - Medication Medications: Active Medications Generic Name Dose Route Start Last Admin Trade Name Freq PRN Reason Stop Dose Admin Calcitriol 0.25 mcg 03/26/20 09:00 03/28/20 09:41 Rocaltrol PO 0.25 mcg DAILY YARI Administration Epoetin Robert-epbx 7,500 unit 03/26/20 09:00 03/26/20 08:50 Retacrit SC 7,500 unit [id number] YARI Administration Heparin Sodium (Porcine) 5,000 units 03/26/20 21:00 03/28/20 08:56 Heparin SC 5,000 units BID YARI Administration Metoprolol Tartrate 25 mg 03/25/20 21:00 03/28/20 08:53 Lopressor PO 25 mg BID YARI Administration Nifedipine 30 mg 03/26/20 09:00 03/28/20 08:53 Procardia Xl PO 30 mg DAILY YARI Administration Tramadol HCl 50 mg 03/26/20 11:00 03/27/20 22:05 Ultram PO 50 mg Q4H PRN Administration Mild-Moderate Pain (1-5) Tuberculin PPD 0.1 ml 03/26/20 13:30 03/27/20 08:12 Tuberculin Ppd I-DERMAL 03/29/20 13:31 Not Given 1330 YARI - Exam General Appearance: NAD Neck: supple, no JVD Heart: RRR, no gallops Respiratory: no wheezes, no ronchi Gastrointestinal: soft, non-distended Extremities: no cyanosis Hosp A/P (1) Acute on chronic renal failure Code(s): N17.9 - ACUTE KIDNEY FAILURE, UNSPECIFIED; N18.9 - CHRONIC KIDNEY DISEASE, UNSPECIFIED Status: Acute Qualifiers: Chronic kidney disease stage: stage 5, not on chronic dialysis (2) Anemia in chronic kidney disease Code(s): N18.9 - CHRONIC KIDNEY DISEASE, UNSPECIFIED; D63.1 - ANEMIA IN CHRONIC KIDNEY DISEASE Status: Chronic Qualifiers: Chronic kidney disease stage: stage 5, not on chronic dialysis Qualified Code(s): N18.5 - Chronic kidney disease, stage 5; D63.1 - Anemia in chronic kidney disease (3) Hypertension Code(s): I10 - ESSENTIAL (PRIMARY) HYPERTENSION Status: Chronic (4) GERD (gastroesophageal reflux disease) Code(s): K21.9 - GASTRO-ESOPHAGEAL REFLUX DISEASE WITHOUT ESOPHAGITIS Status: Chronic (5) FSGS (focal segmental glomerulosclerosis) Code(s): N05.1 - UNSP NEPH SYNDROME W FOCAL AND SEGMENTAL GLOMERULAR LESIONS Status: Chronic (6) Peritoneal dialysis catheter in place Code(s): Z99.2 - DEPENDENCE ON RENAL DIALYSIS - Plan 03/28 Tolerating peritoneal dialysis. Awaiting outpatient dialysis set up. Continue Procardia XL with metoprolol. Ambulate. A.m. labs. Continue other medications. 03/27 Continue peritoneal dialysis. Receiving 1 unit of PRBC. Continue metoprolol with Procardia XL. Await outpatient dialysis set up. DVT prophylaxis. Continue other medications as above. 03/26 Patient underwent peritoneal dialysis catheter placement. Dialysis will be initiated. He declined AV fistula at this time. Continue Procardia XL with metoprolol. Outpatient dialysis set up. Continue renal diet. Ambulate. DVT prophylaxis with heparin.
[2020-03-28] MEDS: Tuberculin PPD 0.1 ML VIAL I-DERMAL SCH (14:22)
[2020-03-28] MEDS: Ferrous Sulfate 325 MG TAB PO SCH (16:59)
[2020-03-28] MEDS: READ PPD TEST SITE PO SCH (19:01)
[2020-03-29] MEDS: traMADol HCl 50 MG TAB PO PRN (03:03)
[2020-03-29 05:47] LABS: #Basophils 0.1 thou/uL (0.0-0.2); #Eosinphils 0.1 thou/uL (0.0-0.7); #Lymphocytes 1.6 thou/uL (1.20-3.40); #Monocytes 0.4 thou/uL (0.11-0.59); #Neutrophils 2.4 thou/uL (1.40-6.50); %Basophils 1.7 % (0.0-1.0); %Eosinophils 2.7 % (0.0-10.0); %Lymphocytes 35.3 % (21.0-51.0); %Monocytes 8.1 % (0.0-10.0); %Neutrophils 52.3 % (42.0-75.0); Hemoglobin 8.3 g/dL (14.0-18.0); Mean Corpuscular Hemoglobin 29.3 pg (27.0-31.0); Mean Corpuscular Volume 83.8 fL (78.0-98.0); Mean Platelet Volume 8.5 fL (7.4-10.4); Platelet Count 193 thou/uL (130-400); RBC Distribution Width 12.5 % (11.5-14.5); Red Blood Cell (RBC) Count 2.84 mill/uL (4.70-6.10); White Blood Cell (WBC) Count 4.6 thou/uL (4.8-10.8)
[2020-03-29 06:16] LABS: Anion Gap 14 mmol/L (10-20); BUN (Urea Nitrogen) 68 mg/dL (8.9-20.6); Calc. Creatinine Clearance 9 mL/min (70-130); Calcium 8.4 mg/dL (7.8-10.44); Carbon Dioxide 21 mmol/L (22-29); Chloride 102 mmol/L (98-107); Estimated GFR-MDRD 7; Glucose 93 mg/dL (70-105); Potassium 3.8 mmol/L (3.5-5.1); Sodium 133 mmol/L (136-145)
--- NOTE | 2020-03-29 08:02 | PRG ---
DATE OF SERVICE: 03/29/2020 SUBJECTIVE: Mr. Oneida Andino is a 40-year-old Citizen Of [place] male, who was admitted for initiation of peritoneal dialysis. He has received two days of consecutive peritoneal dialysis. He is tolerating the said treatment. He voices no new complaints today. No chest pain or shortness of breath. He also has received 1 unit of packed RBC. OBJECTIVE: VITAL SIGNS: Blood pressure 145/83, heart rate 71, respiratory rate 16, temperature 97.7, and O2 saturation 100% on room air. GENERAL: Awake, alert, supine, comfortable, not in distress. SKIN: Adequate turgor. HEENT: Slightly pale conjunctivae. Anicteric sclerae. NECK: No neck mass. No carotid bruits. No JVD. CHEST: No deformities. LUNGS: Clear breath sounds. No wheezing. No crackles. HEART: Normal sinus rhythm. No murmurs. No gallops. No rubs. ABDOMEN: Globular. Soft. Nontender. No masses. Positive for PD catheter. EXTREMITIES: No edema. No deformities. MEDICATIONS: Medications of March 29, 2020, was reviewed. LABORATORY DATA: Laboratories of March 29, 2020: White count 4.6, hemoglobin 8.3. Sodium 133, potassium 3.8, chloride 102, carbon dioxide 21, BUN 68, creatinine 9.03, calcium 8.4. PTH is 391. ASSESSMENT AND PLAN: 1. End-stage renal disease/chronic renal failure. Continuing daily peritoneal dialysis. If the patient is discharged today, he will report at [facility] for further training with a PD. He is tolerating current peritoneal dialysis. Denies any abdominal pain or shortness of breath. 2. Anemia, status post blood transfusion. Continue weekly Epogen. 3. Secondary hyperparathyroidism. Continuing daily calcitriol 0.25 mcg tablet daily. 4. Agree with planned discharge today or in a.m. Job ID: [id number]
[2020-03-29] MEDS: Ferrous Sulfate 325 MG TAB PO SCH ×2 (08:07→17:05)
[2020-03-29] MEDS: Heparin 5,000 UNITS/ML VIAL SC SCH (08:08)
[2020-03-29] MEDS: Calcitriol 0.25 MCG CAP PO SCH (08:08)
[2020-03-29] MEDS: Metoprolol Tartrate 25 MG TAB PO SCH (08:08)
[2020-03-29] MEDS: NIFEdipine XL 30 MG TAB PO SCH (08:08)
[2020-03-29 08:21] VITALS: BP 142/88
[2020-03-29 08:26] VITALS: TEMP 97.8
--- NOTE | 2020-03-29 14:22 | DIS ---
DATE OF ADMISSION: 03/25/2020 DATE OF DISCHARGE: 03/29/2020 DISCHARGE DISPOSITION: Home. FOLLOWUP: Follow up with Nephrology as scheduled. DISCHARGE MEDICATIONS: Same as admission medication with addition of calcitriol and ferrous sulfate. The patient was evaluated on the day of discharge. Denies any new complaints. No chest pain, shortness of breath, fever, or chills reported. BRIEF HOSPITAL COURSE: The patient is a 40-year-old male with focal segmental glomerulosclerosis, presented to the emergency room with worsening renal function. He was sent by Dr. Romero, Nephrology. He was found to have a creatinine of 9.16 with potassium of 4.4. General Surgery was consulted for dialysis access. The peritoneal dialysis catheter was placed on March,. The peritoneal dialysis has been initiated. Outpatient peritoneal dialysis has been setup. The patient has been cleared by Nephrology for discharge. SIGNIFICANT LABORATORY DATA: COVID testing negative. Hepatitis B surface antigen and C antibody was negative. Sodium at discharge is 133 with BUN of 68, creatinine of 9.03. Hemoglobin at discharge is 8.3, on admission was 7.8. Lowest hemoglobin was 6.5. FINAL DIAGNOSES: 1. Acute kidney injury on chronic kidney disease stage 5, started on peritoneal dialysis. 2. Anemia due to chronic kidney disease. 3. Hypertension. 4. Gastroesophageal reflux disease. 5. History of focal segmental glomerulosclerosis. 6. Status post peritoneal dialysis catheter placement this admission. 7. Hyponatremia. 8. Metabolic acidosis due to renal dysfunction. 9. Hypomagnesemia. The patient understands the above plan of care. Job ID: [id number]
[2020-03-29] MEDS: Tuberculin PPD 0.1 ML VIAL I-DERMAL SCH (15:53)
[2020-03-29] MEDS: READ PPD TEST SITE PO SCH (15:53)
--- NOTE | 2020-03-30 16:04 | PQF ---
CLINICAL DOCUMENTATION CLARIFICATION FORM: Dear Dr. CLOTILDE PIERCE Date: 03-30-20 Please exercise your independent, professional judgment in responding to the clarification form. Clinical indicators are provided on the bottom of this form for your review. Please check appropriate box(es): [ ] Protein Calorie Malnutrition: [ ] Mild [ ] Moderate [ ] Severe [ ] Other Malnutrition (please specify) __ [ ] Other [ ] Unable to determine In addition, please specify: Present on Admission (POA): [ ] Yes [ ] No [ ] Unable to determine For continuity of documentation, please document condition throughout progress notes and discharge summary. Thank You. To be completed by CDI/Coding staff for physician review: CLINICAL INDICATORS - SIGNS / SYMPTOMS / LABS / RESULTS AND LOCATION IN MR: BMI 03-26-20: 16 NUTRITION CONSULT 03-26-20: Patient is NPO for PD catheter placement today. He reports having a lower appetite for the last 2 weeks but has still made himself eat. He also c/o nausea every morning during these 2 weeks, denies vomiting. He followed a "raw vegetable only diet" for a while in the last year after a friend's recommendation, however, quit because he was losing weight and having low energy levels. He weighed ~78 kg one year ago. NUTRITION CONSULT 03-26-20: patient report of self-restricting diet to raw vegetables only in the last year likely meeting <50% of estimated needs, 27.6% weight loss in the last year suggestive of severe malnutrition in the context of chronic illness and social/environmental circumstances RISK FACTORS / RESULTS AND LOCATION IN MR: NUTRITION CONSULT 03-26-20: He reports having a lower appetite for the last 2 weeks but has still made himself eat. He also c/o nausea every morning during these 2 weeks, denies vomiting. He followed a "raw vegetable only diet" for a while in the last year after a friend's recommendation, however, quit because he was losing weight and having low energy levels. TREATMENT / RESULTS AND LOCATION IN MR: NUTRITION CONSULT 03-26-20: 1. When medically appropriate, recommend a Renal-Protein High diet. Patient primarily follows a vegetarian diet at home but suggest leaving off actual diet order to limit restrictions 2. Recommend Nepro once daily to best meet needs for weight gain Moderate Malnutrition (in acute illness) Energy Intake: <75% of estimated energy requirement for > 7 days Weight Loss: 1-2%/1 week; 5%/ 1 month; 7.5%/3 months Other: mild body fat loss; mild muscle mass loss; mild fluid accumulation; Severe Malnutrition (in acute illness) Energy Intake: = 50% of estimated energy requirement for = 5 days Weight Loss: >2%/1 week; >5%/1 month; >7.5%/3 months Other: moderate body fat loss; moderate muscle mass loss; moderate- severe fluid accumulation; measurably reduced tooth cutter strength Moderate Malnutrition (in chronic illness) Energy Intake: <75% of estimated energy requirement for =1 month Weight Loss: 5%/1 month; 7.5%/3 months; 10%/6 months; 20%/1 year Other: mild body fat loss; mild muscle mass loss; mild fluid accumulation Severe Malnutrition (in chronic illness) Energy Intake: =75% of estimated energy requirement for =1 month Weight Loss: >5%/1 month; >7.5%/3 months; >10%/6 months; >20%/1 year Other: severe body fat loss; severe muscle mass loss; severe fluid accumulation; measurably reduced tooth cutter strength CDS Signature: Carly Hastings Phone #: [phone] Date: This is a permanent part of the Medical Record [facility]
== END 2020-03-29 17:11 | disposition home or self-care (01) | DRG 683 ==
LOC: ERS 11:26 → ONC 15:56
PROVIDERS: ADMIT Internal Medicine; ATTEND Internal Medicine
PROC: 0WHG33Z Insertion of Infusion Device into Peritoneal Cavity, Percutaneous Approach (ICD-10-PCS; principal; 2020-03-26)
PROC: 3E1M39Z Irrigation of Peritoneal Cavity using Dialysate, Percutaneous Approach (ICD-10-PCS; 2020-03-26)
PROC: 30233N1 Transfusion of Nonautologous Red Blood Cells into Peripheral Vein, Percutaneous Approach (ICD-10-PCS; 2020-03-27)
DX: N17.9 Acute kidney failure, unspecified (principal); I12.0 Hypertensive chronic kidney disease with stage 5 chronic kidney disease or end stage renal disease; E87.1 Hypo-osmolality and hyponatremia; E87.2 Acidosis; N18.6 End stage renal disease; N25.81 Secondary hyperparathyroidism of renal origin; E11.22 Type 2 diabetes mellitus with diabetic chronic kidney disease; K21.9 Gastro-esophageal reflux disease without esophagitis; Z20.828 Contact with and (suspected) exposure to other viral communicable diseases; E83.42 Hypomagnesemia; D63.1 Anemia in chronic kidney disease; Z99.2 Dependence on renal dialysis
CPT/HCPCS: 36415; 36430; 80048; 80053; 83735; 83970; 84100; 85025; 86580; 86704; 86706; 86803; 86850; 86900; 86901; 87340; 87635; 90945; 93005; 93970; G0257; G0365; J0690; J1644; J2405; J2550; J2704; J3010; P9016; Q5105; S0020; U0002; U0003